=== PATIENT | male | born 1980 | race Caucasian/White ===

== ENCOUNTER 2019-07-01 09:09 | Emergency (ER) | payer OTHER, SELFPAY ==
[2019-07-01 09:21] VITALS: BP 126/79; PULSE 113; RESP 20; TEMP 38.3; O2SAT 99
--- NOTE | 2019-07-01 09:23 | ED.URI ---
HPI - URI/Sore Throat General Chief Complaint: Upper Respiratory Infection Stated Complaint: FEVER/SORE THROAT Source: patient and RN notes reviewed Mode of arrival: ambulatory Limitations: no limitations History of Present Illness HPI Narrative: The patient, previously mostly healthy, presents with a shorter 2-day history of sore throat associated with chills/fever. No significant cough, earache, hoarseness, trismus, toothache, wheeze-family members have been similarly ill. Symptoms are mild, worse in the morning or swallowing Related Data Home Medications Medication Instructions Recorded Confirmed onrfznjwo-EG-nefrmuos-guaifen 2 tablet PO Q4-6H PRN 07/01/19 07/01/19 [Cold and Flu Severe] Allergies Allergy/AdvReac Type Severity Reaction Status Date / Time No Known Allergies Allergy Mild Verified 07/01/19 09:26 Review of Systems Review of Systems: Narrative: General/Constitutional: No weight loss,fever Eyes: N0: Redness,discharge Ears/Nose/Throat: No: Epistaxis,ear discharge Respiratory: Denies: Hemoptysis Gastrointestinal: No Vomiting, Bleeding-rectal Skin: No Lumps, eruption Neurologic: No Focal Weakness,Sz Hematologic: Denies: Petechiae/Purpura Psychiatric: No: Suicida ideationl All Other Systems: Reviewed and Negative PMFSH Comments At time of signature, agree with nursing past medical, surgical, social and family history. There is no relevant family history pertinent to the presenting complaint Exam Narrative: Exam Narrative: General Appearance: Well appearing, Well nourished EYE: PERRLA, Conjunctiva clear Ears: Auditory canal normal, TM normal Nose: Rhinorrhea, Mucousal erythema Mouth/Throat: MM moist, Uvula midline, Pharyngeal erythema Neck: Supple, No adenopathy Respiratory: No respiratory distress, Breath sounds equal, Clear to auscultation Cardiovascular: RRR, No JVD Musculoskeletal: Non tender, Normal strength Skin: Warm, Dry Neurological: A&O x3, CN II-XII intact Psychiatric: Normal mood, Normal affect Course Vital Signs Vital signs: Vital Signs Temperature 100.9 F H 07/01/19 09:21 Pulse Rate 113 H 07/01/19 09:21 Respiratory Rate 20 07/01/19 09:21 Blood Pressure 126/79 07/01/19 09:21 Pulse Oximetry 99 07/01/19 09:21 Temperature 100.9 F H 07/01/19 09:21 Pulse Rate 113 H 07/01/19 09:21 Respiratory Rate 20 07/01/19 09:21 Blood Pressure 126/79 07/01/19 09:21 Pulse Oximetry 99 07/01/19 09:21 MDM - URI/Sore Throat Lab Data Labs: Strep Screen Positive Group A Strep *(Reference Range: Negative)* Discharge Plan Discharge Clinical Impression: Strep pharyngitis Patient Disposition: Home, Self-Care Condition: Stable Instructions: Antibiotic Form, Strep Throat (ED) Prescriptions: New amoxicillin 875 mg tablet 875 mg PO Q12H Qty: 20 RF: 0 Lidocaine Viscous 2 % solution 5 ml MUCOUS MEM QID PRN (Reason: pain) Qty: 100 RF: 0 codeine-guaifenesin 10-100 mg/5 mL liquid 7.5 ml PO Q6H PRN (Reason: cough) Qty: 118 RF: 0 No Action Cold and Flu Severe 0-02-206-200 mg Tablet 2 tablet PO Q4-6H PRN (Reason: Fever) RF: 0 Interventions: Discharge Disposition Last Done: 07/01/19 09:57 Follow-up/Referrals: PHYSICIAN NOT ON STAFF,NONSTAFF [Primary Care Provider] - Discharge Date/Time: 07/01/19 09:58
== END 2019-07-01 09:58 | disposition home or self-care (01) ==
PROVIDERS: Emergency Provider Emergency Medicine
DX: J02.0 Streptococcal pharyngitis (principal)
CPT/HCPCS: 87880; 99203; G0463

== ENCOUNTER 2024-06-23 18:00 | Emergency (ER) | payer BC, SELFPAY ==
--- NOTE | ~2024-06-23 | XR_ITS ---
CHEST RADIOGRAPH, PA AND LATERAL CLINICAL HISTORY: pre-syncope . COMPARISON: None available TECHNIQUE: PA and lateral views of the chest. FINDINGS The cardiomediastinal silhouette is unremarkable. The lungs are clear. Visualized osseous structures and soft tissues are unremarkable. IMPRESSION: No focal infiltrate or effusion. Reviewed, dictated and finalized at location A. BENDING MACHINE OPERATOR
--- OUTSIDE RECORDS SUMMARY | 2024-06-23 18:02 | XMS_ITS ---
Author Organization [facility] Address [address] [place] [address] Care Team Providers Care Plastic Injection Mold Maker Name Role Phone Unavailable Unavailable Unavailable Surgery Details Not on file Complications Check Surgery Details section. Procedure Estimated Blood Loss Check Surgery Details section. Procedure Findings Check Surgery Details section. Procedure Specimens Taken Check Surgery Details section.
--- OUTSIDE RECORDS SUMMARY | 2024-06-23 18:02 | XMS_ITS | Encounter Summary ---
Author Organization [facility] [place] [address] [place] [address] Care Team Providers Care Inside Trucker Name Role Phone Unavailable Primary Care Provider Unavailabl e Prior Encounters Date Type Department Care Team Description 06/05/2019 Converted CPS Chart Documents [facility] [id number] [id number] <No scans attached> 06/05/2019 Converted 13x Documents [facility] [id number] [phone] <No scans attached> Plan of Treatment Not on file Procedures Procedure Name Priority Date/Time Associated Diagnosis Comments TOPICAL APPLICATION OF FLUORIDE VARNISH Routine 11/12/2015 2:00 AM CDT PROPHYLAXIS - ADULT Routine 11/12/2015 2 :00 AM CDT COMPREHENSIVE ORAL EVALUATION - NEW OR ESTABLISHED PATIENT Routine 11/12/2015 2:00 AM CDT ORAL HYGIENE INSTRUCTIONS Routine 2015 2:00 AM CDT TOPICAL APPLICATION OF FLUORIDE VARNISH Routine 11/12/2015 2:00 AM CDT PROPHYLAXIS - ADULT Routine 11/12/2015 2 :00 AM CDT PANORAMIC RADIOGRAPHIC IMAGE Routine 11/12/2015 2:00 AM CDT INTRAORAL - COMPREHENSIVE SERIES OF RADIOGRAPHIC IMAGES Routine 11/12/2015 2:00 AM CDT INTRAORAL PHOTO Routine 11/12/2015 2:00 AM CDT INTRAORAL PHOTO Routine 11/12/2015 2:00 AM CDT INTRAORAL PHOTO Routine 11/12/2015 2:00 AM CDT INTRAORAL PHOTO Routine 11/12/2015 2:00 AM CDT 14 O COMPOSITE FILLING Routine 6 2:00 AM CDT Visit Diagnoses Not on file
--- OUTSIDE RECORDS SUMMARY | 2024-06-23 18:02 | XMS_ITS | CCD ---
Author Organization [facility] [place] Address [address] [place] [address] Care Team Providers Care Hypnotherapist Name Role Phone Unavailable Primary Care Provider Unavailabl e Social History Tobacco Use Types Packs/Day Years Used Date Smoking Tobacco: Never Assessed Sex and Gender Information Value Date Recorded Sex Assigned at Not on file Legal Sex Male 1:20 AM PST Gender Identity Not on file Sexual Orientation Not on file Plan of Treatment Not on file
--- OUTSIDE RECORDS SUMMARY | 2024-06-23 18:02 | XMS_ITS | Clinical Summary ---
Author Organization [facility] Address [address] [place] [address] Phone Care Team Providers Care Service Captain Name Role Phone Padmini Sage MD Primary Care Provider Allergies No known active allergies Medications cetirizine (ZyrTEC) 10 mg tabletIndicatio ns:Seasonal Allergic Rhinitis Take 1 tablet (10 mg total) by mouth daily as needed for allergies Active Active Problems Problem Noted Date Diagnosed Date Encounter for preventive health examination 03/17 Assessment & Plan (01/01/2021 5:16 PM CDT): Reviewed previous labs and diagnostic test results. Chronic medical problems evaluated and management plans discussed with patient. Prescription medications, supplements, vitamins and immunizations reviewed. Discussed healthy diet for disease prevention. Recommended moving towards a plant based diet. Limit alcohol to no more than 7 drinks per week. Discussed importance of scheduling recommended screening tests. Discussed importance of regular physical examinations for health maintenance. Assessment & Plan (03/31/2018 2:02 PM SAP BASIS ARCHITECT): Comprehensive laboratory studies will be obtained the patient will continue a prudent diet and exercise program following up in the office as needed. High arched palate 05/06/2015 Overview (08/21/2016): High arched palate Resolved Problems Problem Noted Date Diagnosed Date Resolved Date Scalp lesion 01/01/2021 10/05/2022 Assessment & Plan (01/01/2021 5:16 PM CDT): Nonhealing lesion on a sun-exposed area. Refer to Dermatology for evaluation. Migraine with aura and witho ut status migrainosus, not intractable 03/31/2018 01/01/2021 Assessment & Plan (03/31/2018 2:01 PM SAP BASIS ARCHITECT): This was his only episode. Patient will be monitored if he has recurrence further workup may be needed BMI 35.0-35.9,adult 03/31/2018 10/06/19 Assessment & Plan (01/01/2021 5:14 PM CDT): BMI Follow-up includes: nutrition counseling, exercise counseling and education provided. Continue his excellent exercise a weight loss program Assessment & Plan (03/31/2018 2:02 PM SAP BASIS ARCHITECT): BMI Follow-up includes: nutrition counseling, exercise counseling and education provided. Persistent insomnia 05/06/2015 01/02/20 Overview (08/21/2016): Persistent disorder of initiating or maintaining sleep Snoring 05/06/2015 10/05/2022 Overview (08/21/2016): Snoring Assessment & Plan (01/01/2021 5:18 PM CDT): Improved with weight loss. No fatigue or daytime sleepiness Fatigue 05/06/2015 01/01/2021 Overview (08/21/2016): Fatigue, unspecified type Immunizations Name Administration Dates Next Due Influenza, Quadrivalent, Lara l Culture-based MDCK, Preservative Free, Antibiotic Free, Intramuscular 02/24/2021 Influenza, Quadrivalent, Spl it, Preservative Free, Intramuscular 04/08/2022,02/26/2020,03/27/2019,02/20 Influenza, Trivalent, IM (MDV) 02/18/2017 Influenza, Trivalent, Preser vative Free, Intramuscular 03/23/2016,06/01/2013 Influenza, Trivalent, Recomb inant, Egg Free, Preservative Free, Antibiotic Free, IM (FLUBLOK) 03/28/2015 Influenza, Unspecified 02/19/2020,03/27/2019,02/2018 Tdap 05/24/2014 Surgical History Surgery Date Site/Laterality Comments TONSILLECTOMY Tonsillectomy APPENDECTOMY 05/17/2001 - 05/16/2002 Appendectomy NOSE SURGERY broken nose repaired WISDOM TOOTH EXTRACTION Medical History Medical History Date Comments Allergic rhinitis Family History Medical History Relation Name Comments Crohn's disease Brother Crohn's dise ase; Vasculitis Father Cancer Maternal Grandmother leukemi a Crohn's disease Maternal Grandmother Other Mother Alive and well; Crohn's disease Other Crohn's disease Paternal Grandfather Breast cancer Paternal Grandmother Colon cancer Neg Hx Relation Name Status Comments Brother Alive Father Alive Maternal Grandmother Mother Alive Other Paternal Grandfather Paternal Grandmother Social History Tobacco Use Types Packs/Day Years Used Date Smoking Tobacco: Former Cigarettes 0.3 10 2 011 - 2020 Smokeless Tobacco: Never Comments:Mostly social smoki ng. Quit in 2012, but then did occasional social smoking for a few years. No smoking in almost 2 yrs since 2020 Alcohol Use Standard Drinks/Week Comments Yes 0 (1 standard drink = 0.6 oz pur e alcohol) AUDIT-C Answer Date Recorded Q1: How often do you have a drink containing alc ohol? 2-3 times a week 01/01/2021 Q2: How many drinks containi ng alcohol do you have on a typical day when you are drinking? 1 or 2 01/01/2021 Frequency of Binge Drinking Not on file 12/15 PHQ-2 Answer Date Recorded PHQ-2 Total Score (If total score is 3 or more points, staff should administer the PHQ-9) 0 10/05/2022 Sex and Gender Information Value Date Recorded Sex Assigned at Not on file Legal Sex Male 8:48 PM SAP BASIS ARCHITECT Gender Identity Not on file Sexual Orientation Not on file Obstetrics History Last Filed Vital Signs Vital Sign Reading Time Taken Comments Blood Pressure 116/80 03/29/2023 11:56 AM SAP BASIS ARCHITECT Pulse 68 03/29/2023 11:56 AM SAP BASIS ARCHITECT Temperature - - Respiratory Rate 18 01/01/2021 7:23 AM CDT Oxygen Saturation 98% 01/01/2021 7:23 AM CDT Inhaled Oxygen Concentration - - Weight 113.9 kg (251 lb) 03/29/2023 11:56 AM SAP BASIS ARCHITECT Height 185.4 cm (6' 1 ) 03/29/2023 11:56 AM SAP BASIS ARCHITECT Body Mass Index 33.12 03/29/2023 11:56 AM SAP BASIS ARCHITECT Plan of Treatment Health Maintenance Due Date Last Done Comments Hepatitis C Screening 1981 Hepatitis B Screening 11/30/1999 Depression Screening 10/06/2023 10/05/2022, 01/01/2021, 03/28/2018 Regular Well Visit/Exam 18-64 10/06/2023 10/05/2022, 01/01/2021, 03/28/2018 Covid-19 Vaccine ( season) 2024 01/31/2022, 03/29/2021, 07/21/2020, Additional history exists Influenza Vaccine (#1) 2024 , 02/24/2021, 02/26/2020, Additional history exists DTaP/Tdap/Td Vaccine (2 - Td or Tdap) 05/24/2024 05/24/2014 HPV Vaccines Aged Out No longer eligi ble based on patient's age to complete this topic Pneumococcal vaccine <65 Aged Out No longer eligible based on patient's age to complete this topic Varicella Vaccines Discontinued [place] [address] [employer] [place] Care Teams Service Captain Relationship Specialty Start Date End Date Padmini Sage MD PCP - General Family Practice 10/05/22
--- OUTSIDE RECORDS SUMMARY | 2024-06-23 18:02 | XMS_ITS | Clinical Summary ---
Author Organization [facility] Address [address] [place] [address] Care Team Providers Care Bookstore Manager Name Role Phone Unavailable Primary Care Provider [...]
--- OUTSIDE RECORDS SUMMARY | 2024-06-23 18:02 | XMS_ITS | Clinical Summary ---
Author Organization [facility] Address [address] Attn: [place] [address] Care Team Providers Care Mine Surveyor Name Role Phone Kunal Shabazz MD Primary Care Provider [phone] Social History Tobacco Use Types Packs/Day Years Used Date Smoking Tobacco: Never Assessed Sex and Gender Information Value Date Recorded Sex Assigned at Not on file Legal Sex Male 4:08 AM SALES AND MANAGEMENT TRAINEE Gender Identity Not on file Sexual Orientation Not on file Plan of Treatment Health Maintenance Due Date Last Done Comments DTAP/TDAP/TD VACCINES (1 - Tdap) 2000 HEPATITIS B VACCINES (1 of 3 - 19+ 3-dose series) 2000 INFLUENZA VACCINE (#1) 2023 HPV VACCINES Aged Out No longer eligi ble based on patient's age to complete this topic PNEUMOCOCCAL VACCINE 0-64 YEARS Aged Out No longer eligible based on patient's age to complete this topic Care Teams Mine Surveyor Relationship Specialty Start Date End Date Kunal Shabazz MD [address] [place] [address] PCP - General 05/03/15
--- OUTSIDE RECORDS SUMMARY | 2024-06-23 18:02 | XMS_ITS | Referral Summary ---
Author Organization [facility] [place] Address [address] [place] [address] Care Team Providers Care Tissue Coordinator Name Role Phone Unavailable Primary Care Provider [...]
--- OUTSIDE RECORDS SUMMARY | 2024-06-23 18:02 | XMS_ITS | Referral Summary ---
Author Organization [facility] Address [address] [place] [address] Phone Care Team Providers Care Truck Jumper Name Role Phone Padmini Sage MD Primary [...] maintenance. Assessment & Plan (03/31/2018 2:02 PM CHILD CARE AIDE): Comprehensive laboratory studies will be obtained the [...] 01/01/2021 Assessment & Plan (03/31/2018 2:01 PM CHILD CARE AIDE): This was his only episode. Patient will be monitored if he has recurrence further workup may be needed BMI 35.0-35.9,adult 03/31/2018 10/06/19 Assessment & Plan (01/01/2021 5:14 PM CDT): BMI Follow-up includes: nutrition counseling, exercise counseling and education provided. Continue his excellent exercise a weight loss program Assessment & Plan (03/31/2018 2:02 PM CHILD CARE AIDE): BMI Follow-up includes: nutrition counseling, exercise counseling [...] (FLUBLOK) 03/28/2015 Influenza, Unspecified 02/19/2020,03/27/2019,02/2018 Tdap 05/24/2014 Social History Tobacco Use Types Packs/Day Years Used Date Smoking Tobacco: Former Cigarettes 0.3 10 2 011 2020 Smokeless Tobacco: Never Comments:Mostly social smoki [...] on file Legal Sex Male 8:48 PM CHILD CARE AIDE Gender Identity Not on file Sexual Orientation Not on file Last Filed Vital Signs Vital Sign Reading Time Taken Comments Blood Pressure 116/80 03/29/2023 11:56 AM CHILD CARE AIDE Pulse 68 03/29/2023 11:56 AM CHILD CARE AIDE Temperature - - Respiratory Rate 18 01/01/2021 7:23 AM CDT Oxygen Saturation 98% 01/01/2021 7:23 AM CDT Inhaled Oxygen Concentration - - Weight 113.9 kg (251 lb) 03/29/2023 11:56 AM CHILD CARE AIDE Height 185.4 cm (6' 1 ) 03/29/2023 11:56 AM CHILD CARE AIDE Body Mass Index 33.12 03/29/2023 11:56 AM CHILD CARE AIDE Plan of Treatment Not on file Insurance [facility] CHOICE PLUS [place] Care Teams Truck Jumper Relationship Specialty Start Date End Date Padmini Sage MD PCP - General Family Practice 10/05/22
--- OUTSIDE RECORDS SUMMARY | 2024-06-23 18:02 | XMS_ITS | Encounter Summary ---
Author Organization [facility] Address [address] [place] [address] Care Team Providers Care Assistant Tennis Coach Name Role Phone Kunal Shabazz MD Primary Care Provider [phone] Encounter Details Date Type Department Care Team (Late st Contact Info) Description 11/04/2006 Outpatient Historical [facility] [place] [place] [id number] [place], Authorized P NO ADDRESS ON FILE Open Wound of Finger(s) , without Mention of Complication (Primary Dx) Social History Tobacco Use Types Packs/Day Years Used Date Smoking Tobacco: Never Assessed Sex and Gender Information Value Date Recorded Sex Assigned at Not on file Legal Sex Male 4:08 AM LIME SLUDGE KILN OPERATOR Gender Identity Not on file Sexual Orientation Not on file documented as of this encounter Plan of Treatment Not on file documented as of this encounter Visit Diagnoses Diagnosis Open wound of finger(s) , without mention of complication- Primary documented in this encounter Care Teams Assistant Tennis Coach Relationship Specialty Start Date End Date Kunal Shabazz MD [address] [place] [address] PCP - General 05/03/15 documented as of this encounter
[2024-06-23 18:12] VITALS: BP 148/89; PULSE 67; RESP 17; TEMP 36.6; O2SAT 100
--- NOTE | 2024-06-23 18:14 | ECG_ITS ---
Test Date: 2024-06-23 18:40:29 Measurements Intervals [place] Rate: 58 P: 52 ID: [id number] QRS: 31 QRSD: 105 T: 34 QT: 426 QTc: 421 Interpretive Statements SINUS BRADYCARDIA BORDERLINE ECG No previous ECG available for comparison Electronically Signed On 06-23-2024 19:02:45 SCALER by Boni Ugalde D.O.
--- NOTE | 2024-06-23 18:14 | ED.DIZZY ---
HPI - Dizziness General Chief Complaint: Syncope <Liudmila Huynh PA-C - Last Filed: 06/23/24 18:16> Stated Complaint: dizzy near syncopal episode <Liudmila Huynh PA-C - Last Filed: 06/23/24 18:16> Time Seen by Provider: 06/23/24 20:04 <Liudmila Huynh PA-C - Last Filed: 06/23/24 18:16> Focused HPI: 43-year-old male presents to the emergency department for presyncope and lightheadedness. Patient states around 2:00 p.m. this afternoon he was sitting at his desk when he began to feel very dizzy and lightheaded like he was going to pass out. States this lasted for approximately an hour and half, 1 way that returned but has since resolved. He is not currently having any symptoms. He states while he was dizzy, the symptoms worsened when he would stand up or walk and better when he laid his head down. States finally when he went into a dark room and laid down for 30 minutes his symptoms went away. He reports associated nausea at the time of dizziness. Denies chest pain shortness of breath, palpitations, hemoptysis, history of VTE, N/V/D. GENERAL: Well-appearing, well-nourished, and in no acute distress. HEAD: Normocephalic, atraumatic. CHEST: Clear to auscultation. ?No respiratory distress. HEART: Regular rate and rhythm.? NEURO: ?Alert and oriented x3. Patient screened in triage and initial orders placed.? ?Additional care and disposition to be based upon?diagnostic testing and treatment. <Liudmila Huynh PA-C - Last Filed: 06/23/24 18:16> Focused HPI: 43-year-old male presents to the emergency department for presyncope and lightheadedness. Patient states around 2:00 p.m. this afternoon he was sitting at his desk when he began to feel very dizzy and lightheaded like he was going to pass out. States this lasted for approximately an hour and half. He is not currently having any symptoms. He states while he was dizzy, the symptoms worsened when he would stand up or walk and better when he laid his head down. States finally when he went into a dark room and laid down for 30 minutes his symptoms went away. He reports associated nausea at the time of dizziness. He has had previous similar episodes. Denies chest pain shortness of breath, palpitations, hemoptysis, history of VTE, N/V/D. GENERAL: Well-appearing, well-nourished, and in no acute distress. HEAD: Normocephalic, atraumatic. CHEST: Clear to auscultation. ?No respiratory distress. HEART: Regular rate and rhythm.? NEURO: ?Alert and oriented x3. Patient screened in triage and initial orders placed.? ?Additional care and disposition to be based upon?diagnostic testing and treatment. <Karla Weems PA-C - Last Filed: 06/23/24 20:27> Related Data Home Medications: Home Medications ?Medication ?Instructions ?Recorded ?Confirmed ?Last Taken ?Type wmvbxsjerkyzr-OQ-hpooqtytnadjk-guaifen 2 tablet PO Q4-6H PRN Fever 07/01/19 07/01/19 Unknown History 5 mg-10 mg-325 mg-200 mg tablet (Cold and Flu Severe) <Liudmila Huynh PA-C - Last Filed: 06/23/24 18:16> Allergies/Adverse Reactions: Allergies Allergy/AdvReac Type Severity Reaction Status Date / Time No Known Allergies Allergy Mild Verified 07/01/19 09:26 <Liudmila Huynh PA-C - Last Filed: 06/23/24 18:16> Review of Systems Review of Systems: CONSTITUTIONAL: Denies fever EYES: Denies visual changes CARDIOVASCULAR: Denies chest pain RESPIRATORY: Denies dyspnea. GASTROINTESTINAL: Denies vomiting NEUROLOGIC: Denies numbness, or weakness. <Karla Weems PA-C - Last Filed: 06/23/24 20:27> All systems reviewed & are unremarkable except as noted in HPI and below <Karla Weems PA-C - Last Filed: 06/23/24 20:27> PMFSH Past Medical History Medical History: Medical History (Updated 06/23/24 @ 20:25 by Karla Weems PA-C) No active medical problems <Liudmila Huynh PA-C - Last Filed: 06/23/24 18:16> Social History Social History: Social History (Updated 06/23/24 @ 20:25 by Karla Weems PA-C) Substance use: never <Liudmila Huynh PA-C - Last Filed: 06/23/24 18:16> Exam Narrative: GENERAL: Well-appearing, well-nourished, and in no acute distress. HEAD: Normocephalic, atraumatic. EYES: PERRLA and EOMI. ENT: Nares clear, no rhinorrhea or epistaxis. Mucous membranes moist. Oropharynx without tonsillar hypertrophy exudate or other lesions. Bilateral TMs [place] non-bulging NECK: Supple. No adenopathy or masses. CHEST: Clear to auscultation. No respiratory distress. No wheezes rales or rhonchi HEART: Regular rate and rhythm. No murmur heard. Normal peripheral pulses. EXTREMITIES: Normal range of motion. No edema. SKIN: Warm, dry, no rash. NEURO: No focal deficits. Alert and oriented x3. Cranial nerves 2-12 grossly intact PSYCH: Normal mood and affect <Karla Weems PA-C - Last Filed: 06/23/24 20:27> Course Course Emergency Course: Patient updated on his workup and agrees with plan of care. Asymptomatic currently <Karla Weems PA-C - Last Filed: 06/23/24 20:27> Vital Signs Vital signs: Vital Signs Temperature 97.8 F 06/23/24 18:12 Pulse Rate 67 06/23/24 18:12 Respiratory Rate 17 06/23/24 18:12 Blood Pressure 148/89 H 06/23/24 18:12 Pulse Oximetry 100 06/23/24 18:12 Oxygen Delivery Room Air 06/23/24 18:12 Temperature 97.8 F 06/23/24 18:12 Pulse Rate 67 06/23/24 18:12 Respiratory Rate 17 06/23/24 18:12 Blood Pressure 148/89 H 06/23/24 18:12 Pulse Oximetry 100 06/23/24 18:12 Oxygen Delivery Room Air 06/23/24 18:12 <Liudmila Huynh PA-C - Last Filed: 06/23/24 18:16> Vital Signs Temperature 97.8 F 06/23/24 18:12 Pulse Rate 67 06/23/24 18:12 Respiratory Rate 17 06/23/24 18:12 Blood Pressure 148/89 H 06/23/24 18:12 Pulse Oximetry 100 06/23/24 18:12 Oxygen Delivery Room Air 06/23/24 18:12 Temperature 97.8 F 06/23/24 18:12 Pulse Rate 67 06/23/24 18:12 Respiratory Rate 17 06/23/24 18:12 Blood Pressure 148/89 H 06/23/24 18:12 Pulse Oximetry 100 06/23/24 18:12 Oxygen Delivery Room Air 06/23/24 18:12 <Karla Weems PA-C - Last Filed: 06/23/24 20:27> MDM - Dizziness MDM Narrative Medical decision making narrative: Patient presents to the emergency department for a near syncopal episode today at work. He is asymptomatic currently. His vitals are stable. CBC with mild leukocytosis to 11.4. He is afebrile and has no current infectious symptoms. Metabolic panel with mild transaminitis. EKG without concerning changes in baseline troponin is negative. Chest x-ray without acute cardiopulmonary abnormality. Patient updated on his workup and agrees with plan of care. Asymptomatic currently. Instructed to have further follow-up with his primary doctor. He was given warnings to return to the ER <Karla Weems PA-C - Last Filed: 06/23/24 20:27> Differential Diagnosis Differential diagnosis: Likely benign paroxysmal positional vertigo, orthostatic hypotension and other (Dehydration, hypoglycemia, arrhythmia, electrolyte derangement) <Karla Weems PA-C - Last Filed: 06/23/24 20:27> Lab Data Attestation: I reviewed the patient's lab results. <Karla Weems PA-C - Last Filed: 06/23/24 20:27> Result diagrams: 06/23/24 18:59 06/23/24 18:59 <BRADEN Jennings Last Filed: 06/23/24 18:16> Labs: Lab Results 06/23/24 Range/Units 18:59 WBC 11.4 H (4.5-10.0) K/mm3 RBC 5.18 (4.6-6.20) M/mm3 Hgb 15.5 (14.0-18.0) g/dL Hct 45.9 (42.0-52.0) % MCV 88.6 (80-100) fl MCH 29.9 (26-34) pg MCHC 33.8 (32-36) g/dl RDW 12.5 (11.5-14.5) % Plt Count 298 (150-375) k/mm3 MPV 9.9 (7.4-10.4) fl Immature Gran % (Auto) 0.3 (0-0.5) % Neut % (Auto) 87.5 H (45.5-73.1) % Lymph % (Auto) 7.6 L (18.3-44.2) % [place] % (Auto) 3.8 (2.6-8.5) % Eos % (Auto) 0.6 (0-4.4) % Baso % (Auto) 0.2 (0.2-1.2) % Lymph # (Auto) 0.87 L (0.9-3.2) K/mm3 [place] # (Auto) 0.4 (0.1-0.6) K/mm3 Eos # (Auto) 0.1 (0-0.3) K/mm3 Baso # (Auto) 0.0 (0.0-0.1) K/mm3 Abs Immat Gran (auto) 0.03 (0.00-0.031) K/mm3 Absolute Neuts (auto) 10.0 H (1.3-6.7) K/mm3 Absolute Nucleated RBC 0.000 (0.0-0.012) K/mm3 Nucleated RBC % 0.0 (0.0-0.2) % PT 13.6 (11.1-14.7) Seconds INR 1.0 APTT 25.0 (22.3-36.8) Seconds Sodium 136 L (137-145) mmol/L Potassium 3.9 (3.4-5.0) mmol/L Chloride 98 (98-107) mmol/L Carbon Dioxide 28 (22-30) mmol/L Anion Gap 10 (4-12) mmol/L BUN 15 (9-20) mg/dL Creatinine 0.79 (0.7-1.3) mg/dL Estim Creat Clear Calc 138 ml/min Estimated GFR > 60 (59 - ) Glucose 79 (65-110) mg/dL Calcium 9.6 (8.4-10.2) mg/dL Magnesium 2.0 (1.6-2.3) mg/dL Total Bilirubin 0.7 (0.2-1.3) mg/dL AST 199 H (17-59) U/L ALT 88 H (6-50) U/L Alkaline Phosphatase 75 (38-126) U/L Troponin I < 0.012 (0.000-0.034) ng/mL NT-Pro-B Natriuret Pep 28 (19.9-100) pg/mL Total Protein 8.0 (6.3-8.2) g/dL Albumin 4.9 (3.5-5.1) g/dL <Liudmila Huynh PA-C - Last Filed: 06/23/24 18:16> Lab Results 06/23/24 Range/Units 18:59 WBC 11.4 H (4.5-10.0) K/mm3 RBC 5.18 (4.6-6.20) M/mm3 Hgb 15.5 (14.0-18.0) g/dL Hct 45.9 (42.0-52.0) % MCV 88.6 (80-100) fl MCH 29.9 (26-34) pg MCHC 33.8 (32-36) g/dl RDW 12.5 (11.5-14.5) % Plt Count 298 (150-375) k/mm3 MPV 9.9 (7.4-10.4) fl Immature Gran % (Auto) 0.3 (0-0.5) % Neut % (Auto) 87.5 H (45.5-73.1) % Lymph % (Auto) 7.6 L (18.3-44.2) % [place] % (Auto) 3.8 (2.6-8.5) % Eos % (Auto) 0.6 (0-4.4) % Baso % (Auto) 0.2 (0.2-1.2) % Lymph # (Auto) 0.87 L (0.9-3.2) K/mm3 [place] # (Auto) 0.4 (0.1-0.6) K/mm3 Eos # (Auto) 0.1 (0-0.3) K/mm3 Baso # (Auto) 0.0 (0.0-0.1) K/mm3 Abs Immat Gran (auto) 0.03 (0.00-0.031) K/mm3 Absolute Neuts (auto) 10.0 H (1.3-6.7) K/mm3 Absolute Nucleated RBC 0.000 (0.0-0.012) K/mm3 Nucleated RBC % 0.0 (0.0-0.2) % PT 13.6 (11.1-14.7) Seconds INR 1.0 APTT 25.0 (22.3-36.8) Seconds Sodium 136 L (137-145) mmol/L Potassium 3.9 (3.4-5.0) mmol/L Chloride 98 (98-107) mmol/L Carbon Dioxide 28 (22-30) mmol/L Anion Gap 10 (4-12) mmol/L BUN 15 (9-20) mg/dL Creatinine 0.79 (0.7-1.3) mg/dL Estim Creat Clear Calc 138 ml/min Estimated GFR > 60 (59 - ) Glucose 79 (65-110) mg/dL Calcium 9.6 (8.4-10.2) mg/dL Magnesium 2.0 (1.6-2.3) mg/dL Total Bilirubin 0.7 (0.2-1.3) mg/dL AST 199 H (17-59) U/L ALT 88 H (6-50) U/L Alkaline Phosphatase 75 (38-126) U/L Troponin I < 0.012 (0.000-0.034) ng/mL NT-Pro-B Natriuret Pep 28 (19.9-100) pg/mL Total Protein 8.0 (6.3-8.2) g/dL Albumin 4.9 (3.5-5.1) g/dL <Karla Weems PA-C - Last Filed: 06/23/24 20:27> Imaging Data Radiologist's impression: ITS Impressions Chest X-Ray 06/23/24 19:39 IMPRESSION: No focal infiltrate or effusion. <Karla Weems PA-C - Last Filed: 06/23/24 20:27> ECG Data EKG #1: ECG completion date: 06/23/24 <BRADEN Bravo Last Filed: 06/23/24 20:27> EKG Interpretation: bradycardia, sinus rhythm, no ST changes and normal QT <BRADEN Bravo Last Filed: 06/23/24 20:27> Critical Care Time Critical Care Time Critical Care Time: No <BRADEN Bravo Last Filed: 06/23/24 20:27> Discharge Plan Discharge Clinical Impression: Near syncope <BRADEN Jennings Last Filed: 06/23/24 18:16> Patient Disposition: Home, Self-Care <BRADEN Jennings Last Filed: 06/23/24 18:16> Condition: Improved <BRADEN Jennings Last Filed: 06/23/24 18:16> Instructions: Near Syncope (ED) <BRADEN Jennings Last Filed: 06/23/24 18:16> Additional Instructions: Return to the emergency department if you experience fever, chest pain, shortness of breath, abdominal pain with nausea and vomiting, weakness, numbness/tingling, or any other symptoms that are concerning to you. Your blood work, imaging and EKG here were largely reassuring. You had a mild elevated in your white blood cell count as well as your liver enzymes. This blood work should be repeated to ensure normalization Follow up with your primary care doctor for further evaluation and management <BRADEN Jennings Last Filed: 06/23/24 18:16> Patient Language: Irish <BRADEN Jennings Last Filed: 06/23/24 18:16> Prescriptions: No Action Cold and Flu Severe [id number] mg Tablet 2 tablet PO Q4-6H PRN (Reason: Fever) amoxicillin 875 mg tablet 875 mg PO Q12H Qty: 20 0RF Lidocaine Viscous 2 % solution 5 ml MUCOUS MEM QID PRN (Reason: pain) Qty: 100 0RF Rx Instructions: Gargle and spit codeine-guaifenesin 10-100 mg/5 mL liquid 7.5 ml PO Q6H PRN (Reason: cough) Qty: 118 0RF <Liudmila Huynh PA-C - Last Filed: 06/23/24 18:16> Follow-up/Referrals: PHYSICIAN NOT ON STAFF,NONSTAFF [Primary Care Provider] - <Liudmila Huynh PA-C - Last Filed: 06/23/24 18:16>
[2024-06-23 19:11] LABS: Basophils Percent Auto 0.2 % (0.2-1.2); Eosinophils Absolute Auto 0.1 K/mm3 (0-0.3); Eosinophils Percent Auto 0.6 % (0-4.4); Hematocrit 45.9 % (42.0-52.0); Hemoglobin 15.5 g/dL (14.0-18.0); Immature Granulocyte Absolute 0.03 K/mm3 (0.00-0.031); Immature Granulocyte Percent A 0.3 % (0-0.5); Lymphocytes Absolute Auto 0.87 K/mm3 (0.9-3.2); Lymphocytes Percent Auto 7.6 % (18.3-44.2); Mean Corpuscular HGB Conc 33.8 g/dl (32-36); Mean Corpuscular Hemoglobin 29.9 pg (26-34); Mean Corpuscular Volume 88.6 fl (80-100); Mean Platelet Volume 9.9 fl (7.4-10.4); Monocytes Absolute Auto 0.4 K/mm3 (0.1-0.6); Monocytes Percent Auto 3.8 % (2.6-8.5); Neutrophils Percent Auto 87.5 % (45.5-73.1); Platelet Count Result 298 k/mm3 (150-375); Red Blood Count 5.18 M/mm3 (4.6-6.20); Red Cell Distribution Width 12.5 % (11.5-14.5); White Blood Count 11.4 K/mm3 (4.5-10.0)
[2024-06-23 19:17] LABS: Alanine Aminotransferase 88 U/L (6-50); Albumin Level 4.9 g/dL (3.5-5.1); Alkaline Phosphatase 75 U/L (38-126); Anion Gap 10 mmol/L (4-12); Aspartate Amino Transferase 199 U/L (17-59); Bilirubin,Total 0.7 mg/dL (0.2-1.3); Blood Urea Nitrogen 15 mg/dL (9-20); Calcium 9.6 mg/dL (8.4-10.2); Carbon Dioxide 28 mmol/L (22-30); Chloride 98 mmol/L (98-107); Estimated CRCL calculation 138 ml/min; Estimated Glomerular Filt Rate > 60; Glucose 79 mg/dL (65-110); Potassium 3.9 mmol/L (3.4-5.0); Sodium 136 mmol/L (137-145)
[2024-06-23 19:19] LABS: Prothrombin Time 13.6 Seconds (11.1-14.7)
[2024-06-23 19:28] LABS: NT Pro B Type Natriuretic Pept 28 pg/mL (19.9-100); Troponin I < 0.012 ng/mL (0.000-0.034)
--- OUTSIDE RECORDS SUMMARY | 2024-06-23 20:39 | XMS_ITS | Encounter Summary ---
Author Organization [facility] Address [address] [place] [address] Care Team Providers Care Energy Sales Broker Name Role Phone Kunal Shabazz MD Primary Care Provider [phone] Encounter Details Date Type Department Care Team (Late st Contact Info) Description 11/04/2006 Outpatient Historical [facility] Hina Young MD [facility] [place], [place] [id number] Er, Authorized P NO ADDRESS ON FILE Open Wound of Finger(s) , without Mention of Complication (Primary Dx) Social History Tobacco Use Types Packs/Day Years Used Date Smoking Tobacco: Never Assessed Sex and Gender Information Value Date Recorded Sex Assigned at Not on file Legal Sex Male 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
--- OUTSIDE RECORDS SUMMARY | 2024-06-23 20:39 | XMS_ITS | Encounter Summary ---
Author Organization [facility] Address [address] [place] [address] Care Team Providers Care Broomcorn Seeder Name Role Phone Unavailable Primary Care Provider Unavailabl e Prior Encounters Date Type Department Care Team Description 06/05/2019 Converted CPS Chart Documents [facility] [id number] [id number] <No scans attached> 06/05/2019 Converted 13x Documents [facility] [id number] [id number] <No [...]
--- OUTSIDE RECORDS SUMMARY | 2024-06-23 20:39 | XMS_ITS | Clinical Summary ---
Author Organization [facility] [place] [address] [place] [address] Care Team Providers Care Experimental Aircraft Mechanic Name Role Phone Unavailable Primary Care Provider [...]
--- OUTSIDE RECORDS SUMMARY | 2024-06-23 20:39 | XMS_ITS | Referral Summary ---
Author Organization [facility] Address [address] [place] [address] Care Team Providers Care Recruiter Manager Name Role Phone Unavailable Primary Care [...]
--- OUTSIDE RECORDS SUMMARY | 2024-06-23 20:39 | XMS_ITS | Clinical Summary ---
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
--- OUTSIDE RECORDS SUMMARY | 2024-06-23 20:39 | XMS_ITS ---
Author Organization [facility] Address [address] [place] [address] Care Team Providers Care Third Steel Pourer Name Role Phone Unavailable Unavailable Unavailable Surgery Details Not on file Complications Check Surgery Details section. Procedure Estimated Blood Loss Check Surgery Details section. Procedure Findings Check Surgery Details section. Procedure Specimens Taken Check Surgery Details section.
--- OUTSIDE RECORDS SUMMARY | 2024-06-23 20:39 | XMS_ITS | Clinical Summary ---
Author Organization [facility] Address [address] [place] [address] Phone Care Team Providers Care Hand Cutter Apprentice Name Role Phone Padmini Sage MD Primary [...] maintenance. Assessment & Plan (03/31/2018 2:02 PM EMPLOYEE BENEFITS SPECIALIST): Comprehensive laboratory studies will be obtained the [...] 01/01/2021 Assessment & Plan (03/31/2018 2:01 PM EMPLOYEE BENEFITS SPECIALIST): This was his only episode. Patient will be monitored if he has recurrence further workup may be needed BMI 35.0-35.9,adult 03/31/2018 10/06/19 Assessment & Plan (01/01/2021 5:14 PM CDT): BMI Follow-up includes: nutrition counseling, exercise counseling and education provided. Continue his excellent exercise a weight loss program Assessment & Plan (03/31/2018 2:02 PM EMPLOYEE BENEFITS SPECIALIST): BMI Follow-up includes: nutrition counseling, exercise counseling [...] on file Legal Sex Male 8:48 PM EMPLOYEE BENEFITS SPECIALIST Gender Identity Not on file Sexual Orientation Not on file Obstetrics History Last Filed Vital Signs Vital Sign Reading Time Taken Comments Blood Pressure 116/80 03/29/2023 11:56 AM EMPLOYEE BENEFITS SPECIALIST Pulse 68 03/29/2023 11:56 AM EMPLOYEE BENEFITS SPECIALIST Temperature - - Respiratory Rate 18 01/01/2021 7:23 AM CDT Oxygen Saturation 98% 01/01/2021 7:23 AM CDT Inhaled Oxygen Concentration - - Weight 113.9 kg (251 lb) 03/29/2023 11:56 AM EMPLOYEE BENEFITS SPECIALIST Height 185.4 cm (6' 1 ) 03/29/2023 11:56 AM EMPLOYEE BENEFITS SPECIALIST Body Mass Index 33.12 03/29/2023 11:56 AM EMPLOYEE BENEFITS SPECIALIST Plan of Treatment Health Maintenance Due Date [...] complete this topic Varicella Vaccines Discontinued [place] [address] [facility] CHOICE [place]US [place] Care Teams Hand Cutter Apprentice Relationship Specialty Start Date End Date Padmini Sage MD PCP - General Family Practice 10/05/22
--- OUTSIDE RECORDS SUMMARY | 2024-06-23 20:39 | XMS_ITS | Referral Summary ---
Author Organization [facility] Address [address] [place] [address] Phone Care Team Providers Care Hotel Or Motel Room Service Supervisor Name Role Phone Padmini Sage MD Primary [...] maintenance. Assessment & Plan (03/31/2018 2:02 PM ROLLER SHOP UTILITY WORKER): Comprehensive laboratory studies will be obtained the [...] 01/01/2021 Assessment & Plan (03/31/2018 2:01 PM ROLLER SHOP UTILITY WORKER): This was his only episode. Patient will be monitored if he has recurrence further workup may be needed BMI 35.0-35.9,adult 03/31/2018 10/06/19 Assessment & Plan (01/01/2021 5:14 PM CDT): BMI Follow-up includes: nutrition counseling, exercise counseling and education provided. Continue his excellent exercise a weight loss program Assessment & Plan (03/31/2018 2:02 PM ROLLER SHOP UTILITY WORKER): BMI Follow-up includes: nutrition counseling, exercise counseling [...] on file Legal Sex Male 8:48 PM ROLLER SHOP UTILITY WORKER Gender Identity Not on file Sexual Orientation Not on file Last Filed Vital Signs Vital Sign Reading Time Taken Comments Blood Pressure 116/80 03/29/2023 11:56 AM ROLLER SHOP UTILITY WORKER Pulse 68 03/29/2023 11:56 AM ROLLER SHOP UTILITY WORKER Temperature - - Respiratory Rate 18 01/01/2021 7:23 AM CDT Oxygen Saturation 98% 01/01/2021 7:23 AM CDT Inhaled Oxygen Concentration - - Weight 113.9 kg (251 lb) 03/29/2023 11:56 AM ROLLER SHOP UTILITY WORKER Height 185.4 cm (6' 1 ) 03/29/2023 11:56 AM ROLLER SHOP UTILITY WORKER Body Mass Index 33.12 03/29/2023 11:56 AM ROLLER SHOP UTILITY WORKER Plan of Treatment Not on file Insurance [facility] CHOICE PLUS [facility] HMO/PPO Address: [address] [address] [place] [address] [place] Care Teams Hotel Or Motel Room Service Supervisor Relationship Specialty Start Date End Date Padmini Sage MD PCP - General Family Practice 10/05/22
--- OUTSIDE RECORDS SUMMARY | 2024-06-23 20:39 | XMS_ITS | CCD ---
Author Organization [facility] Address [address] [place] [address] Care Team Providers Care Quenching Car Operator Name Role Phone Unavailable Primary Care Provider [...]
[2024-06-23 21:13] VITALS: O2SAT 99
[2024-06-23 21:14] VITALS: BP 130/78; PULSE 70; RESP 16; O2SAT 100
== END 2024-06-23 21:16 | disposition home or self-care (01) ==
LOC: ANHED 20:36
PROVIDERS: Physician Assistant; Emergency Provider Physician Assistant
DX: R55 Syncope and collapse (principal); R00.1 Bradycardia, unspecified
CPT/HCPCS: 36415; 71046; 80053; 83735; 83880; 84484; 85025; 85610; 85730; 93005; 99284